=== PATIENT | male | born 1945 | race Caucasian/White ===

== ENCOUNTER 2017-03-05 18:03 | Observation (INO) ==
[2017-03-05] MEDS: 0.9 % SODIUM CHLORIDE 1,000 ML IV SCH ×2 (18:40→22:15)
[2017-03-05 18:56] LABS: Basophils # (Auto) 0.1 K/mcL (0.0-0.3); Basophils % (Auto) 0.6 % (0.0-2.0); Eosinophils # (Auto) 0.2 K/mcL (0.0-0.7); Eosinophils % (Auto) 2.1 % (0.0-7.0); Granulocytes % (Auto) 69.6 % (38.0-78.0); Lymphocytes # (Auto) 2.1 K/mcL (1.5-4.8); Lymphocytes % (Auto) 19.6 % (15.5-49.0); Mean Cell Volume 87.4 fL (80.0-100.0); Mean Corpuscular HGB Conc 32.8 g/dL (31.0-36.0); Mean Corpuscular Hemoglobin 28.7 pg (26.0-34.0); Monocytes # (Auto) 0.9 K/mcL (0.1-0.9); Monocytes % (Auto) 8.1 % (1.0-12.0); Platelet Count 835 K/mcL (140-440); RBC 2.85 M/mcL (4.50-5.90); Red Cell Distribution Width 17.7 % (11.5-14.5)
[2017-03-05 19:19] LABS: Iron 28 mcg/dl (61-157); Transferrin % Saturation 9 % (20-50); Unsaturated Iron Binding 261 mcg/dL (112-346)
--- NOTE | 2017-03-05 19:57 | Emergency Department Note ---
General Adult HPI - General Chief complaint: Recheck/Abnormal Lab/Rx Stated complaint: Anemia Time Seen by Provider: 03/05/17 18:09 Source: patient Mode of arrival: ambulatory - History of Present Illness HPI Narrative: Patient presents, brought in by son. Recently hospitalized at [place] after workup at [facility]. Anemia requiring transfusion, endoscopy upper finding 3 small ulcers. Treated, currently on twice daily protonix. Elevated troponin, told it was due to his anemia, no intervention. Call today from cardiology in [place]. Told that he should come to the ER to get checked out due to anemia. Patient notes residual low-level chest pain. States this is usually with him chronically. Denies any emesis. Notes that he had several days of normal stool and now has melanotic stool. Is taking iron. States that stools were melanotic without the iron. Mildly lightheaded, not short of breath above his baseline. No emesis. Continuing aspirin as instructed. - Related Data Home Medications Medication Instructions Recorded Confirmed Aspirin [Adult Low Dose Aspirin EC] 81 mg PO DAILY 03/05/17 03/05/17 Atorvastatin [Lipitor] 80 mg PO HS 03/05/17 03/05/17 Bisoprolol Fumarate 5 mg PO DAILY 03/05/17 03/05/17 Insulin Glargine, Human [Lantus] 25 unit SQ HS 03/05/17 03/05/17 Iron Polysaccharide Complex 150 mg PO BID 03/05/17 03/05/17 [Ferrex 150] Lisinopril [Zestril] 2.5 mg PO BID 03/05/17 03/05/17 Metoprolol Tartrate [Lopressor] 12.5 mg PO BID 03/05/17 03/05/17 Pantoprazole [Protonix] 40 mg PO BID 03/05/17 03/05/17 Saxagliptin HCl [Onglyza] 5 mg PO DAILY 03/05/17 03/05/17 metFORMIN HCL [Glucophage] 1,000 mg PO BID 03/05/17 03/05/17 Allergies Allergy/AdvReac Type Severity Reaction Status Date / Time codeine Allergy Itching Verified 03/05/17 18:11 hydrocodone Allergy Itching Verified 03/05/17 18:11 Review of Systems All systems ED: reviewed and negative except as stated. Past Medical History - Past Medical History Attestation: Yes: The following information was validated with the patient. Medical history: Reports: coronary artery disease, diabetes, GERD, GI bleed Surgical history ED: Reports: non-contributory Family history: Reports: non-contributory - Social History smoking status: Former smoker Physical Exam - General Limitations: no limitations General appearance: alert, in no apparent distress, obese - Head Head exam: atraumatic - Eye Eye exam: Present: normal appearance - ENT ENT exam: normal exam, mucous membranes moist - Neck Neck exam: Present: normal inspection - Chest Chest inspection: Present: normal inspection - Respiratory Respiratory exam: Present: normal lung sounds bilaterally. Absent: respiratory distress - Cardiovascular Cardiovascular exam: Present: regular rate, normal rhythm. Absent: systolic murmur - Abdominal Exam Abdominal exam: Present: soft. Absent: tenderness - Extremities Exam Extremities exam: Present: normal inspection - Back Exam Back exam: Present: normal inspection - Neurological Exam Neurological exam: Present: alert, oriented X3 - Psychiatric Psychiatric exam: Present: normal affect. Absent: anxious - Skin Skin exam: Present: warm, pallor Course Vital Signs Temperature 98.3 F 03/05/17 18:04 Pulse Rate 83 03/05/17 18:04 Respiratory Rate 16 03/05/17 18:04 Blood Pressure 129/66 03/05/17 18:04 Pulse Oximetry (%) 98 03/05/17 18:04 Temperature 98.3 F 03/05/17 18:04 Pulse Rate 94 H 03/05/17 21:32 Respiratory Rate 19 03/05/17 21:32 Blood Pressure 126/65 03/05/17 21:32 Pulse Oximetry (%) 94 03/05/17 21:32 Medical Decision Making - Medical Records Medical records reviewed: Yes I reviewed the patient's medical records. records from [facility] 02/14 discharge hgb 8.9; severe on echo, advised for TAVR - Lab Data Lab results reviewed: Yes I reviewed the patient's lab results. Result diagrams: 03/05/17 18:31 Lab Results 03/05/17 03/05/17 03/05/17 Range/Units 18:31 18:31 18:31 WBC 10.9 (4.5-11.0) K/mcL RBC 2.85 L (4.50-5.90) M/mcL Hgb 8.2 L (13.5-16.5) g/dL Hct 24.9 L (41.0-55.0) % POC Hct 25.0 L (41.0-55.0) % MCV 87.4 (80.0-100.0) fL MCH 28.7 (26.0-34.0) pg MCHC 32.8 (31.0-36.0) g/dL RDW 17.7 H (11.5-14.5) % Plt Count 835 H (140-440) K/mcL MPV 7.4 (7.4-10.4) fL Gran % 69.6 (38.0-78.0) % Lymph % (Auto) 19.6 (15.5-49.0) % [place] % (Auto) 8.1 (1.0-12.0) % Eos % (Auto) 2.1 (0.0-7.0) % Baso % (Auto) 0.6 (0.0-2.0) % Gran # 7.6 (1.8-8.0) K/mcL Lymph # (Auto) 2.1 (1.5-4.8) K/mcL [place] # (Auto) 0.9 (0.1-0.9) K/mcL Eos # (Auto) 0.2 (0.0-0.7) K/mcL Baso # (Auto) 0.1 (0.0-0.3) K/mcL POC Sodium 140 (133-145) mmol/L POC Potassium 4.2 (3.3-5.1) mmol/L POC Chloride 105 (96-108) mmol/L POC Total CO2 24 (22-30) mmol/L POC BUN 18 (8-23) mg/dl POC Creatinine 1.2 (0.7-1.2) mg/dl POC Glucose 118 H (70-105) mg/dL POC WB Ioniz Calcium 1.16 (1.16-1.32) mmol/L Iron 28 L (61-157) mcg/dl TIBC 289 (228-428) ug/dl Unsat Iron Binding 261 (112-346) mcg/dL Transferrin % Sat 9 L (20-50) % Troponin T 0.02 (0-0.03) ng/ml - EKG Data EKG #1 EKG attestation: Yes I reviewed and interpreted this EKG. EKG results narrative: lateral ST depressions, nondiagnostic Critical Care Time Critical Care Time: Yes Total Critical Care Time: 50 Attestation: ECURRENT gi BLEEDING,SYMPTOMATIC ANEMIA Disposition Clinical Impression: Melena, Severe aortic stenosis Anemia Qualifiers: Anemia type: iron deficiency Iron deficiency anemia type: chronic blood loss Qualified Code(s): D50.0 - Iron deficiency anemia secondary to blood loss ( chronic) Summary: ECEIVING PHYSICIAN dR. Jeter; PENDING CALL TO gi SERVICES, dR. Hein Disposition: Xfer As Inpt ([facility]) Condition: Serious Referrals: Eli Loja ARNP [Primary Care Provider] -
[2017-03-05] MEDS ORDERED: PANTOPRAZOLE 40 MG VIAL IV ONE ×2 (20:59→22:45)
--- NOTE | 2017-03-05 22:22 | Internal Med History&Physical ---
Medical - H&P: HPI Patient information: Note initiated : 03/05/17 at 10:17 pm Patient: Zach Dobson 71 y/o M admitted on for Anemia. History of present illness: Mr. Dobson is a 71 year old M This patient says he started to have issues with lightheadedness and dizziness a few months ago. He presented to [facility] on February 09, and was diagnosed with an upper GI bleed. He was told he had 3 ulcers. He also had known aortic stenosis, and he and his son were trying to figure out the status of that. He got frustrated with the doctors at [facility] so left [facility], and his son drove him up to [facility] in [place]. The patient was transfused 1 unit of packed red blood cells, and started on Protonix. He apparently had some blood work done today, as they were planning on a cardiac cath on March 13. His cardiology office called him today to say that his hemoglobin was very low again and that he should come back to the hospital. Apparently the cardiac cath is planned and they are told he may need to stents, and then in a few months they plan on doing aortic valve replacement and possible bypass surgery as well. At discharge from [facility], he was sent home on baby aspirin, in addition to lisinopril, metoprolol, Lipitor, Protonix, metformin, etc. Prior to his ulcer diagnosis, he had been taking Naprosyn and was also smoking up to 2 packs a day. He has since discontinued those. Over the last several days he has been having some dark stools, but his son and he thought that was because he started taking iron tablets at the end of January. He does have some mild dizziness and dyspnea with exertion, but his son says that has been going on for the last couple of months, and did not seem that different. The patient does have a cough daily, but it is only intermittently productive, and seems worse since he quit smoking. Otherwise, he denies fever or chills, new eye or ear symptoms, sore throat, abdominal pain, nausea or vomiting, diarrhea or constipation. He does have occasional mild chest discomfort and tightness, and dyspnea with exertion, but feels those have been stable. He does have chronic urinary hesitancy. He is normally followed by Eli Loja NP, at the [facility]. He previously was treated with both pro-air and Spiriva inhalers, as well as Flomax, but apparently they had him discontinue these medications when he was at [facility]. He is currently followed by a director software quality assurance named Dr. Espinal. Past medical history: Recent upper GI bleed, admitted to [facility], EGD revealed 3 peptic ulcers. January 2017. History of coronary artery disease Critical aortic valve stenosis, with AVR planned Hypertension COPD long-standing tobacco abuse, having just quit recently Type 2 diabetes GERD Medications: Oxygen 2.5 L at at bedtime Bisoprolol 5 milligrams daily (he has been taking this, but did not realize [facility] had replaced it with metoprolol) Metoprolol 12.5 mg p.o. twice daily Lisinopril 2.5 mg p.o. twice daily Ferrex 150 150 mg p.o. twice daily Protonix 40 mg p.o. twice daily Saxagliptin 5 mg daily Metformin 1000 mg twice daily Lantus 25 units nightly Lipitor 80 mg nightly Aspirin 81 mg daily Prior to admission to [facility], he was taking Norvasc, aspirin, chlorthalidone, losartan, multivitamin, Naprosyn, pro-air, Spiriva, Flomax, vitamin C. Allergies: Codeine Hydrocodone next Family history: The patient reports his father with stomach cancer. His mother after a motor vehicle accident. His sister had multiple myeloma. His father may also have had diabetes. He is unaware of any family history of heart disease or stroke. Social history: The patient has been living alone, but his son has been staying with him lately. He plans to move to either [place] or [facility] soon, so that he can live near 1 of his sons. He has smoked 1-2 packs of cigarettes per day since the age of 12, and just quit your earlier this year. He has not drunk alcohol for many years. He was smoking marijuana most evenings to help him sleep, but quit that recently as well. Medical - H&P: Meds Home Medications Medication Instructions Recorded Confirmed Type Aspirin [Adult Low Dose Aspirin EC] 81 mg PO DAILY 03/05/17 03/05/17 History Atorvastatin [Lipitor] 80 mg PO HS 03/05/17 03/05/17 History Bisoprolol Fumarate 5 mg PO DAILY 03/05/17 03/05/17 History Insulin Glargine, Human [Lantus] 25 unit SQ HS 03/05/17 03/05/17 History Iron Polysaccharide Complex 150 mg PO BID 03/05/17 03/05/17 History [Ferrex 150] Lisinopril [Zestril] 2.5 mg PO BID 03/05/17 03/05/17 History Metoprolol Tartrate [Lopressor] 12.5 mg PO BID 03/05/17 03/05/17 History Pantoprazole [Protonix] 40 mg PO BID 03/05/17 03/05/17 History Saxagliptin HCl [Onglyza] 5 mg PO DAILY 03/05/17 03/05/17 History metFORMIN HCL [Glucophage] 1,000 mg PO BID 03/05/17 03/05/17 History Allergies Allergy/AdvReac Type Severity Reaction Status Date / Time codeine Allergy Itching Verified 03/05/17 18:11 hydrocodone Allergy Itching Verified 03/05/17 18:11 Medical - H&P: Exam - Constitutional Vitals: Temp Pulse Resp BP Pulse Ox 98.3 F 77 20 116/55 97 03/05/17 18:04 03/05/17 22:12 03/05/17 22:12 03/05/17 22:02 03/05/17 22:12 Initial blood pressure 129/66, dropping to 92/58, and now up to 127/108. Heart rate initially 83 and then bumped to 94, O2 saturation 94% on room air The patient is an elderly white male, who is rather pale, lying in bed. He is in no acute distress. Head is normocephalic atraumatic. Eyes: PERRLA, EOMI, anicteric. Ears: TMs and canals are clear. Pharynx: Pharynx is clear. He has full upper and lower plates. Neck: Is supple, without lymphadenopathy or thyromegaly. Neck veins are a little bit full. He has bilateral bruits, that seemed to radiate from his heart murmur. Cardiac exam: Shows regular rate and rhythm, with normal S1 and S2. There is a fairly loud, coarse systolic murmur throughout the precordium, loudest at the left lower sternal border. Lungs: Are clear to auscultation, with slightly decreased breath sounds. Rare wheezes are noted. No rales or rhonchi are noted. Abdomen: Is soft and nontender, with no obvious masses. Bowel sounds are active. There is no guarding or rebound. Rectal exam: No stools were noted in the ER. However the son brought a picture of the patient's stool, which was quite black. Extremities: Show no cyanosis, clubbing, edema. Pulses are intact. Neurologic exam: Is grossly nonfocal. Medical - H&P: Reslt - Labs CBC & Chem 7: 03/05/17 18:31 Labs: Short CBC 03/05/17 Range/Units 18:31 WBC 10.9 (4.5-11.0) K/mcL Hgb 8.2 L (13.5-16.5) g/dL Hct 24.9 L (41.0-55.0) % Plt Count 835 H (140-440) K/mcL Cardiac Enzymes 03/05/17 Range/Units 18:31 Troponin T 0.02 (0-0.03) ng/ml INR is 1.2 Chemistry panel: Sodium 140, potassium 4.2, BUN 18, creatinine 1.2, glucose 118 Iron is low at 28 TIBC is normal. Transferrin saturation is low at 9% EKG: Shows normal sinus rhythm with a rate of about 90, normal axis, slow R- wave progression, no acute ST-T changes. Medical - H&P: A/P (1) Hx of coronary artery disease Current visit: Yes Status: Chronic (2) PUD (peptic ulcer disease) Current visit: Yes Status: Acute (3) History of tobacco use Current visit: Yes Status: Chronic (4) DM type 2 (diabetes mellitus, type 2) Current visit: Yes Status: Chronic (5) Melena Current visit: Yes Status: Acute (6) Anemia Current visit: Yes Status: Acute (7) Severe aortic stenosis Current visit: Yes Status: Chronic (8) COPD (chronic obstructive pulmonary disease) Current visit: Yes Status: Acute - Narrative A/P Narrative: #1. GI. Patient presents with apparent melena, and significant anemia. This is suspicious for recurrent GI bleed, given his recent history of upper GI bleed due to peptic ulcers. His son reports that his most recent hemoglobin, prior to today, was 10. -Admit to telemetry for close monitoring. -Serial hemoglobin and hematocrit -IV Protonix ip -GI consult -Type and cross for 2 units of packed red cells -N.p.o. #2. Cardiac. -History of coronary artery disease. We will hold oral meds for now, but use as needed Lopressor for elevated blood pressure or heart rate. -When taking p.o., resume lisinopril, , metoprolol, atorvastatin. Bisoprolol can be stopped, as it appears his [facility] doctors laced that with metoprolol. -Aspirin is on hold. 3. Endocrine. -History of type 2 diabetes. -Metformin and saxagliptin are on hold. -Accu-Cheks and sliding scale insulin coverage. Add back Lantus once taking p.o. 4. CODE STATUS: Full code. His son, Rashel, has his POA. 5. DVT prophylaxis: SCDs. 6. Hematologic. This patient presents with anemia. His recent baseline is unclear. -Type and cross. -Platelets are quite elevated. This may be just an acute reaction. Continue to monitor. #7. Pulmonary. Patient reports history of COPD, and long-standing tobacco abuse. Continue his usual at bedtime oxygen. Albuterol nebs as needed. 8. Insomnia. Patient reports he often has difficulty sleeping. He requested medication, and will be prescribed as needed Ativan. This visit took approximately 60 minutes, to review the patient's case with the ER MD, review his test results, interview and examine him, review plan of care with the patient and his son, and write orders.
[2017-03-05] MEDS ORDERED: NITROGLYCERIN 0.4 MG TAB.SUBL SL PRN (22:37)
[2017-03-05] MEDS ORDERED: ONDANSETRON 4 MG/2 ML VIAL IV PRN (22:37)
[2017-03-05] MEDS ORDERED: POTASSIUM CHLORIDE 20 MEQ in 0.9 % SODIUM CHLORIDE 1,000 ML IV SCH (22:37)
[2017-03-05] MEDS ORDERED: METOPROLOL TARTRATE 5 MG/5 ML VIAL IV PRN (22:37)
[2017-03-05] MEDS ORDERED: DEXTROSE 50% 50 ML VIAL IV PRN (22:37)
[2017-03-05] MEDS ORDERED: DOCUSATE SODIUM 100 MG CAPSULE PO PRN (22:37)
[2017-03-05] MEDS ORDERED: ACETAMINOPHEN 325 MG TABLET PO PRN (22:37)
[2017-03-05] MEDS ORDERED: NALOXONE HCL 0.4 MG/ML VIAL IV PRN (22:37)
[2017-03-05] MEDS ORDERED: 0.9 % SODIUM CHLORIDE 1,000 ML IV SCH (22:37)
[2017-03-05] MEDS ORDERED: 0.9 % SODIUM CHLORIDE 250 ML IV SCH (22:45)
[2017-03-05] MEDS: PANTOPRAZOLE 80 MG in 0.9 % SODIUM CHLORIDE 100 ML IV SCH (22:52)
[2017-03-05] MEDS ORDERED: LORazepam 2 MG/ML VIAL ONE (23:56)
[2017-03-06] MEDS: INSULIN LISPRO 1 UNIT/0.01 ML UNIT SQ SCH ×4 (00:19→19:10)
[2017-03-06] MEDS ORDERED: 0.9 % SODIUM CHLORIDE 250 ML IV SCH (02:00)
[2017-03-06 07:38] LABS: Basophils # (Auto) 0.1 K/mcL (0.0-0.3); Basophils % (Auto) 0.9 % (0.0-2.0); Eosinophils # (Auto) 0.2 K/mcL (0.0-0.7); Eosinophils % (Auto) 2.5 % (0.0-7.0); Granulocytes % (Auto) 70.2 % (38.0-78.0); Lymphocytes # (Auto) 1.4 K/mcL (1.5-4.8); Lymphocytes % (Auto) 18.2 % (15.5-49.0); Mean Cell Volume 88.2 fL (80.0-100.0); Mean Corpuscular HGB Conc 32.8 g/dL (31.0-36.0); Mean Corpuscular Hemoglobin 28.9 pg (26.0-34.0); Monocytes # (Auto) 0.6 K/mcL (0.1-0.9); Monocytes % (Auto) 8.2 % (1.0-12.0); Platelet Count 712 K/mcL (140-440); RBC 2.83 M/mcL (4.50-5.90); Red Cell Distribution Width 17.2 % (11.5-14.5)
[2017-03-06 08:01] LABS: ALT/SGPT 60 U/l (0-40); Albumin/Globulin Ratio 0.9 (1.0-2.3); Alkaline Phosphatase 70 U/L (39-117); Bilirubin,Direct < 0.2 mg/dL (0.0-0.3); Blood Urea Nitrogen 13 mg/dl (8-23); Gamma Glutamyl Transpeptidase 19 U/L (8-61); Magnesium 1.7 mg/dL (1.6-2.5); Uric Acid 7.3 mg/dL (2.5-8.0)
[2017-03-06] MEDS: PANTOPRAZOLE 80 MG in 0.9 % SODIUM CHLORIDE 100 ML IV SCH ×2 (08:15→20:15)
[2017-03-06] MEDS: NACL 0.9% W/KCL 20MEQ 1,000 ML IV SCH ×3 (08:15→20:47)
[2017-03-06] MEDS ORDERED: NICOTINE 7 MG PATCH TOPICAL SCH (10:00)
[2017-03-06] MEDS: LORazepam 2 MG/ML VIAL IV PRN ×4 (10:20→21:27)
[2017-03-06] MEDS ORDERED: PROPOFOL 200 MG/20 ML VIAL IV SCH (15:45)
[2017-03-06] MEDS ORDERED: MIDAZOLAM 2 MG/2 ML VIAL IV SCH (15:45)
[2017-03-06] MEDS ORDERED: PROPOFOL 20 ML IV ONE (16:40)
[2017-03-06] MEDS ORDERED: MIDAZOLAM 2 MG/2 ML VIAL ONE (16:40)
[2017-03-06] MEDS ORDERED: EPINEPHrine 1 MG/ML (1:1000) VIAL IJ ONE (17:48)
--- NOTE | 2017-03-06 20:49 | Internal Med Progress Note ---
Medical - PN: Subj Patient information: Note initiated : 03/06/17 at 8:46 pmService Date, if different from initiated Date: [] Patient: Zach Dobson 71 y/o M admitted on 03/05/17 for Anemia/GI Bleed. Interval history: March 05, 2017: History of present illness: Mr. Dobson is a 71 year old man. This patient says he started to have issues with lightheadedness and dizziness a few months ago. He presented to [facility] on February 09, and was diagnosed with an upper GI bleed. He was told he had 3 ulcers. He also had known aortic stenosis, and he and his son were trying to figure out the status of that. He got frustrated with the doctors at [facility] so left [facility], and his son drove him up to [facility] in [place]. The patient was transfused 1 unit of packed red blood cells, and started on Protonix. He apparently had some blood work done today, as they were planning on a cardiac cath on March 13. His cardiology office called him today to say that his hemoglobin was very low again and that he should come back to the hospital. Apparently the cardiac cath is planned and they are told he may need to stents, and then in a few months they plan on doing aortic valve replacement and possible bypass surgery as well. At discharge from [facility], he was sent home on baby aspirin, in addition to lisinopril, metoprolol, Lipitor, Protonix, metformin, etc. Prior to his ulcer diagnosis, he had been taking Naprosyn and was also smoking up to 2 packs a day. He has since discontinued those. Over the last several days he has been having some dark stools, but his son and he thought that was because he started taking iron tablets at the end of January. He does have some mild dizziness and dyspnea with exertion, but his son says that has been going on for the last couple of months, and did not seem that different. The patient does have a cough daily, but it is only intermittently productive, and seems worse since he quit smoking. Otherwise, he denies fever or chills, new eye or ear symptoms, sore throat, abdominal pain, nausea or vomiting, diarrhea or constipation. He does have occasional mild chest discomfort and tightness, and dyspnea with exertion, but feels those have been stable. He does have chronic urinary hesitancy. He is normally followed by Eli Loja NP, at the [facility]. He previously was treated with both pro-air and Spiriva inhalers, as well as Flomax, but apparently they had him discontinue these medications when he was at [facility]. He is currently followed by a bus van driver named Dr. Espinal. March 06: -The patient underwent upper endoscopy today with Dr. Gallegos. His recent ulcers appear to have healed. A bleeding angiodysplasia lesion was found. This was clipped. Dr. Gallegos feels he will not likely have more bleeding. We will monitor hemoglobin overnight, and start him on a soft diet this evening. -The patient says he feels a bit fatigued today, but denies any shortness of breath or dizziness today. He otherwise denies fever or chills, sore throat. His cough is unchanged. He denies chest pain or palpitations, or significant dyspnea. He denies abdominal pain, nausea or vomiting, dysuria. - Constitutional Vitals: Vital Signs Temp Pulse Resp BP Pulse Ox 97.4 F 72 16 139/73 97 03/06/17 20:00 03/06/17 19:00 03/06/17 20:00 03/06/17 20:00 03/06/17 20:00 Period Temp Pulse Resp BP Sys/Thomson Pulse Ox Last 24 Hr 96.8 F-98.4 F 58-92 16-22 111-166/54-114 94-100 Intake and Output 03/06/17 03/06/17 03/06/17 05:59 13:59 21:59 Intake Total 310 / 310 500 / 500 Output Total 1000 / 1000 1250 / 1250 Balance -690 / -690 -750 / -750 Weight 229 lb Patient Weight 03/07/17 05:59 Weight 229 lb Intake & Output: Intake & Output 03/06/17 03/06/17 03/06/17 05:59 13:59 21:59 Intake Total 310 / 310 500 / 500 Output Total 1000 / 1000 1250 / 1250 Balance -690 / -690 -750 / -750 Weight 229 lb Intake: IV 100 / 100 Protonix 80 mg In Sodium 100 / 100 Chloride 0.9% 100 ml @ 8 MG/HR 10 mls/hr IV Q10H [facility] Rx#:[id number] Oral 400 / 400 Blood Product 310 / 310 Output: Void Amount 1000 / 1000 1250 / 1250 Other: # Voids 1 # Bowel Movements 0 On exam, he is much less pale this morning. He is in no acute distress. Neck is supple without obvious lymphadenopathy. Cardiac exam shows regular rate and rhythm. Lungs are clear to auscultation. Abdomen is soft and nontender. Extremities show no edema. Medical - PN: Obj Da - Labs CBC & Chem 7: 03/06/17 13:06 03/06/17 06:40 Labs: Abnormal Lab Results 03/06/17 03/06/17 03/06/17 13:06 06:40 06:40 RBC 2.83 L Hgb 9.5 L 8.2 L Hct 28.4 L 25.0 L RDW 17.2 H Plt Count 712 H MPV 7.1 L Lymph # (Auto) 1.4 L Glucose 113 H AST 38 H ALT 60 H Albumin 3.0 L Albumin/Globulin Ratio 0.9 L 03/05/17 22:40 RBC Hgb 7.4 L Hct 22.3 L RDW Plt Count MPV Lymph # (Auto) Glucose AST ALT Albumin Albumin/Globulin Ratio March 06: Electrolytes are normal. March 05: INR is 1.2 Chemistry panel: Sodium 140, potassium 4.2, BUN 18, creatinine 1.2, glucose 118 Iron is low at 28 TIBC is normal. Transferrin saturation is low at 9% EKG: Shows normal sinus rhythm with a rate of about 90, normal axis, slow R- wave progression, no acute ST-T changes. Meds: Medications Acetaminophen (Tylenol) 650 mg PO Q6HP PRN PRN Reason: PAIN/FEVER > 101 Dextrose (Dextrose 50%) 0 ml IV UD PRN PRN Reason: Hypoglycemia Diagnostic Test (Pha) (Accu-Chek) 1 each FS Q6 [facility] Last Admin: 03/06/17 19:09 Dose: 1 each Diagnostic Test (Pha) (Accu-Chek) 1 each FS ONCE [facility] Stop: 03/06/17 23:36 Last Admin: 03/06/17 19:39 Dose: Not Given Docusate Sodium (Colace) 100 mg PO BID PRN PRN Reason: Constipation Pantoprazole Sodium 80 mg/ (Sodium Chloride) 100 mls @ 10 mls/hr IV Q10H [facility] PRN Reason: 8 MG/HR Last Admin: 03/06/17 20:15 Dose: 8 mg/hr, 10 mls/hr Potassium Chloride/Sodium Chloride (Nacl 0.9% W/Kcl 20meq 1000ml) 1,000 mls @ 100 mls/hr IV .Q10H [facility] Last Admin: 03/06/17 19:41 Dose: Not Given Insulin Human Lispro (Humalog) 0 unit SQ Q6 [facility] PRN Reason: Protocol Last Admin: 03/06/17 19:10 Dose: Not Given Lorazepam (Ativan) 0.5 mg IV Q2-4HP PRN PRN Reason: ANXIETY/SEDATION Last Admin: 03/06/17 19:07 Dose: 0.5 mg Metoprolol Tartrate (Lopressor) 5 mg IV Q4HP PRN PRN Reason: Tachyarrhythmias Midazolam HCl (Versed) 0 mg IV ONCE [facility] Stop: 03/06/17 23:36 Last Admin: 03/06/17 17:10 Dose: 2 mg Morphine Sulfate (Morphine) 2 mg IV Q5MIN PRN PRN Reason: Chest Pain Naloxone HCl (Narcan) 0.1 mg IV Q2MIN PRN PRN Reason: Opiate Reversal Nicotine (Nicoderm) 7 mg TOPICAL DAILY@1000 [facility] Last Admin: 03/06/17 20:16 Dose: Not Given Nitroglycerin (Nitrostat) 0.4 mg SL Q5M PRN PRN Reason: Chest Pain Ondansetron HCl (Zofran) 4 mg IV Q4HP PRN PRN Reason: Nausea And Vomiting Propofol (Diprivan) 0 mg IV ONCE [facility] Stop: 03/06/17 23:36 Last Admin: 03/06/17 17:10 Dose: 200 mg Medical - PN: A/P - Time Spent With Patient Total time spent is greater than 50% in coordination of care (as documented) at patient's floor/unit and/or counseling patient: 25 - 35 minutes (1) Hx of coronary artery disease Status: Chronic Current Visit: Yes (2) PUD (peptic ulcer disease) Status: Acute Current Visit: Yes (3) History of tobacco use Status: Chronic Current Visit: Yes (4) DM type 2 (diabetes mellitus, type 2) Status: Chronic Current Visit: Yes (5) Melena Status: Acute Current Visit: Yes (6) Anemia Status: Acute Current Visit: Yes (7) Severe aortic stenosis Status: Chronic Current Visit: Yes (8) COPD (chronic obstructive pulmonary disease) Status: Acute Current Visit: Yes - Narrative A/P Narrative: #1. GI. Patient presents with apparent melena, and significant anemia. Endoscopy today showed a bleeding angiodysplastic lesion. This was clipped. Dr. Gallegos feels that the patient should not have any more bleeding. -We will continue to monitor hemoglobin and hematocrit overnight. He can start on a liquid diet this evening. If all is stable tomorrow morning, he can be discharged. -IV Protonix drip #2. Cardiac. -History of coronary artery disease. -Resume usual medications, but hold aspirin for today. We will hold oral meds for now, but use as needed Lopressor for elevated blood pressure or heart rate. - resume lisinopril, , metoprolol, atorvastatin. Bisoprolol can be stopped, as it appears his [facility] doctors laced that with metoprolol. -Aspirin is on hold. 3. Endocrine. -History of type 2 diabetes. -Metformin and saxagliptin are on hold. -Accu-Cheks and sliding scale insulin coverage. Add back Lantus once taking p.o. 4. CODE STATUS: Full code. His son, Rashel, has his POA. 5. DVT prophylaxis: SCDs. 6. Hematologic. This patient presents with anemia. His recent baseline is unclear. -Type and cross. -Platelets are still quite elevated. This may be just an acute reaction. Recheck in the morning. #7. Pulmonary. Patient reports history of COPD, and long-standing tobacco abuse. Continue his usual at bedtime oxygen. Albuterol nebs as needed. 8. Insomnia. Patient reports he often has difficulty sleeping. He requested medication, and was prescribed as needed Ativan. Approximately 25 minutes was spent today, reviewing patient's test results, interviewing and examining him, reviewing plan of care with the patient and his son, and later reviewing the case and endoscopy findings with Dr. Gallegos of GI. Medical - PN: Qual - VTE Deep Vein Thrombosis/Pulmonary Embolism Present on Admission: No
[2017-03-07] MEDS: INSULIN LISPRO 1 UNIT/0.01 ML UNIT SQ SCH ×2 (01:07→05:24)
[2017-03-07] MEDS: NACL 0.9% W/KCL 20MEQ 1,000 ML IV SCH ×2 (03:07→06:41)
[2017-03-07] MEDS: LORazepam 2 MG/ML VIAL IV PRN (05:20)
[2017-03-07 06:31] LABS: Basophils # (Auto) 0 K/mcL (0.0-0.3); Basophils % (Auto) 0.5 % (0.0-2.0); Eosinophils # (Auto) 0.2 K/mcL (0.0-0.7); Eosinophils % (Auto) 2.5 % (0.0-7.0); Granulocytes % (Auto) 73.7 % (38.0-78.0); Lymphocytes # (Auto) 1.1 K/mcL (1.5-4.8); Lymphocytes % (Auto) 14.8 % (15.5-49.0); Mean Cell Volume 88.4 fL (80.0-100.0); Mean Corpuscular HGB Conc 32.7 g/dL (31.0-36.0); Mean Corpuscular Hemoglobin 28.9 pg (26.0-34.0); Monocytes # (Auto) 0.6 K/mcL (0.1-0.9); Monocytes % (Auto) 8.5 % (1.0-12.0); Platelet Count 694 K/mcL (140-440); RBC 3.23 M/mcL (4.50-5.90); Red Cell Distribution Width 16.7 % (11.5-14.5)
[2017-03-07 06:56] LABS: ALT/SGPT 56 U/l (0-40); Albumin 2.9 gm/dL (3.2-5.2); Albumin/Globulin Ratio 0.9 (1.0-2.3); Alkaline Phosphatase 75 U/L (39-117); Bilirubin,Direct < 0.2 mg/dL (0.0-0.3); Blood Urea Nitrogen 10 mg/dl (8-23); Gamma Glutamyl Transpeptidase 19 U/L (8-61); Magnesium 1.8 mg/dL (1.6-2.5); Uric Acid 6.3 mg/dL (2.5-8.0)
[2017-03-07] MEDS ORDERED: metFORMIN 500 MG TABLET PO SCH (08:00)
[2017-03-07] MEDS ORDERED: LISINOPRIL 5 MG TABLET PO SCH (09:00)
[2017-03-07] MEDS ORDERED: METOPROLOL TARTRATE 25 MG TABLET PO SCH (09:00)
[2017-03-07] MEDS ORDERED: IRON POLYSACCHARIDE COMPLEX 150 MG CAPSULE PO SCH (09:00)
--- NOTE | 2017-03-07 11:24 | Discharge Summary ---
Medical - DS: Prov Patient information: Note initiated : 03/07/17 at 11:24 am Service Date, if different from initiated Date: [] Patient: Zach Dobson 71 y/o M admitted on 03/05/17 for Anemia/GI Bleed. Chief Complaint: [] Date of admission: 03/05/17 22:20 Discharge date: 03/07/17 Primary care physician: Eli Loja at the [facility], Dr. ESPINAL, pearl hand at [facility] Admitting clinician: Alondra Kline Attending physician on discharge: Alondra Kline Medical - DS: Meds - Discharge Medications Active and Home Medications: Discharge medications: Please stop taking the bisoprolol Lisinopril 2.5 mg p.o. twice daily Ferrex 151 p.o. twice daily Protonix 40 mg p.o. twice daily Saxagliptin 5 mg daily Metoprolol tartrate 12.5 mg p.o. twice daily Metformin 1000 mg p.o. twice daily Lantus 25 units subcu nightly Lipitor 80 mg p.o. nightly next line aspirin 81 mg daily Tylenol 650 mg every 6 hours as needed Previous home Medications Aspirin [Adult Low Dose Aspirin EC] 81 mg PO DAILY 03/05/17 [History Confirmed 03/05/17 Last Taken Unknown] Atorvastatin [Lipitor] 80 mg PO HS 03/05/17 [History Confirmed 03/05/17 Last Taken Unknown] ?? Bisoprolol Fumarate 5 mg PO DAILY 03/05/17 [History Confirmed 03/05/17 Last Taken Unknown] Insulin Glargine, Human [Lantus] 25 unit SQ HS 03/05/17 [History Confirmed 03/05 Last Taken Unknown] Iron Polysaccharide Complex [Ferrex 150] 150 mg PO BID 03/05/17 [History Confirmed 03/05/17 Last Taken Unknown] Lisinopril [Zestril] 2.5 mg PO BID 03/05/17 [History Confirmed 03/05/17 Last Taken Unknown] Metoprolol Tartrate [Lopressor] 12.5 mg PO BID 03/05/17 [History Confirmed 03/05 Last Taken Unknown] Pantoprazole [Protonix] 40 mg PO BID 03/05/17 [History Confirmed 03/05/17 Last Taken Unknown] Saxagliptin HCl [Onglyza] 5 mg PO DAILY 03/05/17 [History Confirmed 03/05/17 Last Taken Unknown] metFORMIN HCL [Glucophage] 1,000 mg PO BID 03/05/17 [History Confirmed 03/05/17 Last Taken Unknown] Medical - DS: [facility] Hospital course: Mr. Dobson is a 71 year old M March 05, 2017: History of present illness: Mr. Dobson is a 71 year old man. This patient says he started to have issues with lightheadedness and dizziness a few months ago. He presented to [facility] on February 09, and was diagnosed with an upper GI bleed. He was told he had 3 ulcers. He also had known aortic stenosis, and he and his son were trying to figure out the status of that. He got frustrated with the doctors at [facility] so left [facility], and his son drove him up to [facility] in [place]. The patient was transfused 1 unit of packed red blood cells, and started on Protonix. He apparently had some blood work done today, as they were planning on a cardiac cath on March 13. His cardiology office called him today to say that his hemoglobin was very low again and that he should come back to the hospital. Apparently the cardiac cath is planned and they are told he may need to stents, and then in a few months they plan on doing aortic valve replacement and possible bypass surgery as well. At discharge from [facility], he was sent home on baby aspirin, in addition to lisinopril, metoprolol, Lipitor, Protonix, metformin, etc. Prior to his ulcer diagnosis, he had been taking Naprosyn and was also smoking up to 2 packs a day. He has since discontinued those. Over the last several days he has been having some dark stools, but his son and he thought that was because he started taking iron tablets at the end of January. He does have some mild dizziness and dyspnea with exertion, but his son says that has been going on for the last couple of months, and did not seem that different. The patient does have a cough daily, but it is only intermittently productive, and seems worse since he quit smoking. Otherwise, he denies fever or chills, new eye or ear symptoms, sore throat, abdominal pain, nausea or vomiting, diarrhea or constipation. He does have occasional mild chest discomfort and tightness, and dyspnea with exertion, but feels those have been stable. He does have chronic urinary hesitancy. He is normally followed by Eli Loja NP, at the [facility]. He previously was treated with both pro-air and Spiriva inhalers, as well as Flomax, but apparently they had him discontinue these medications when he was at [facility]. He is currently followed by a pearl hand named Dr. Espinal. March 06: -The patient underwent upper endoscopy today with Dr. Gallegos. His recent ulcers appear to have healed. A bleeding angiodysplasia lesion was found. This was clipped. Dr. Gallegos feels he will not likely have more bleeding. We will monitor hemoglobin overnight, and start him on a soft diet this evening. -The patient says he feels a bit fatigued today, but denies any shortness of breath or dizziness today. He otherwise denies fever or chills, sore throat. His cough is unchanged. He denies chest pain or palpitations, or significant dyspnea. He denies abdominal pain, nausea or vomiting, dysuria. March 07: The patient is feeling fine today. He tolerated a regular breakfast. He is anxious to leave. Hemoglobin and hematocrit are stable today. He denies fever or chills, chest pain or palpitations, shortness of breath, GI or symptoms. On exam, he is much less pale . He is in no acute distress. Neck is supple without obvious lymphadenopathy. Cardiac exam shows regular rate and rhythm. 2/6 systolic ejection murmur is noted. Lungs are clear to auscultation. Abdomen is soft and nontender. Extremities show no edema. Neurologic exam is grossly nonfocal Assessment and plan: #1. GI. Patient presents with apparent melena, and significant anemia. Endoscopy showed a bleeding angiodysplastic lesion. This was clipped. Dr. Gallegos feels that the patient should not have any more bleeding. He presented on March 05 with hemoglobin of 8, which dropped to 7. He is status post 2 units of packed red blood cells, and hemoglobin went up to 9.5 last night , and is at 8.6 this morning, with hematocrit 26. He is feeling fine. -He is stable for discharge. He should have follow-up with his regular doctor, or his pearl hand, in the next few days, to recheck hemoglobin and hematocrit. He should certainly return if he has any further signs or symptoms of bleeding. -Resume oral Protonix. He should be safe to resume all of his usual cardiac medications as well appear #2. Cardiac. -History of coronary artery disease. -Resume usual medications. - resume lisinopril, , metoprolol, atorvastatin. Bisoprolol can be stopped, as it appears his [facility] doctors replaced that with metoprolol. 3. Endocrine. -History of type 2 diabetes. -Controlled. Resume usual medications. The patient does not seem entirely on board with following a diabetic diet. 4. CODE STATUS: Full code. His son, Rashel, has his POA. 5. DVT prophylaxis: SCDs. 6. Hematologic. This patient presents with anemia. His recent baseline is unclear. -Type and cross. -Platelets are still quite elevated. This may need to be followed up with a hydramatic specialist, as these do not seem to be coming back to normal. He may have an underlying bone marrow disorder. #7. Pulmonary. Patient reports history of COPD, and long-standing tobacco abuse. Continue his usual at bedtime oxygen. Albuterol nebs as needed. 8. Insomnia. Patient reports he often has difficulty sleeping. He requested medication, and was prescribed as needed Ativan. 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 Coronary artery disease. Secondary discharge diagnosis: Aortic stenosis, critical. Type 2 diabetes. Coronary artery disease. - Time Spent with Patient Total time spent providing and/or coordinating discharge services: Greater than 30 minutes Medical - DS: Exam - Constitutional Vitals: Vital Signs Temp Pulse Pulse Resp BP BP Pulse Ox 03/07/17 08:50 98.6 F 16 143/91 97 03/07/17 08:00 97 03/07/17 04:00 98.1 F 18 143/70 98 03/07/17 00:00 18 165/51 90 03/06/17 20:00 97.4 F 16 139/73 97 03/06/17 19:00 96.8 F L 72 18 129/95 99 03/06/17 18:00 58 L 16 166/54 100 03/06/17 17:47 92 H 16 137/63 98 03/06/17 17:45 62 16 149/64 99 03/06/17 16:51 77 16 153/56 97 03/06/17 16:00 97.4 F 85 22 151/81 94 03/06/17 13:05 97.6 F 18 133/114 96 Intake and Output 03/06/17 03/07/17 03/07/17 21:59 05:59 13:59 Intake Total 1680 / 1680 240 / 240 1230 / 1230 Output Total 1600 / 1600 1350 / 1350 150 / 150 Balance 80 / 80 -1110 / -1110 1080 / 1080 Intake: IV 1100 / 1100 990 / 990 NaCl 0.9% W/KCl 20Meq 1000 / 1000 990 / 990 1000ML 1,000 ml @ 100 mls /hr IV .Q10H [facility] Rx#: [id number] Protonix 80 mg In Sodium 100 / 100 Chloride 0.9% 100 ml @ 8 MG/HR 10 mls/hr IV Q10H [facility] Rx#:[id number] Oral 580 / 580 240 / 240 240 / 240 Output: Void Amount 1600 / 1600 1350 / 1350 150 / 150 Other: Meal Breakfast Percent of Meal Consumed 100% Feeding Ability Independent # Voids 1 1 # Bowel Movements 1 Weight 229 lb Medical - DS: Data Labs on day of discharge: Labs from last 24 hours 03/07/17 03/07/17 03/06/17 03:29 03:29 21:32 WBC 7.3 RBC 3.23 L Hgb 9.3 L 8.6 L Hct 28.6 L 26.4 L MCV 88.4 MCH 28.9 MCHC 32.7 RDW 16.7 H Plt Count 694 H MPV 7.5 Gran % 73.7 Lymph % (Auto) 14.8 L [place] % (Auto) 8.5 Eos % (Auto) 2.5 Baso % (Auto) 0.5 Gran # 5.4 Lymph # (Auto) 1.1 L [place] # (Auto) 0.6 Eos # (Auto) 0.2 Baso # (Auto) 0 Sodium 144 Potassium 4.2 Chloride 107 Carbon Dioxide 24 Anion Gap 13.0 BUN 10 Creatinine 0.8 GFR Calculation 91 Glucose 111 H Uric Acid 6.3 Calcium 8.7 Phosphorus 3.4 Magnesium 1.8 Total Bilirubin 0.4 Direct Bilirubin < 0.2 GGT 19 AST 36 ALT 56 H Alkaline Phosphatase 75 Lactate Dehydrogenase 164 Total Protein 6.2 Albumin 2.9 L Globulin 3.3 Albumin/Globulin Ratio 0.9 L Triglycerides 63 03/06/17 13:06 WBC RBC Hgb 9.5 L Hct 28.4 L MCV MCH MCHC RDW Plt Count MPV Gran % Lymph % (Auto) [place] % (Auto) Eos % (Auto) Baso % (Auto) Gran # Lymph # (Auto) [place] # (Auto) Eos # (Auto) Baso # (Auto) Sodium Potassium Chloride Carbon Dioxide Anion Gap BUN Creatinine GFR Calculation Glucose Uric Acid Calcium Phosphorus Magnesium Total Bilirubin Direct Bilirubin GGT AST ALT Alkaline Phosphatase Lactate Dehydrogenase Total Protein Albumin Globulin Albumin/Globulin Ratio Triglycerides March 06: Electrolytes are normal. March 05: INR is 1.2 Chemistry panel: Sodium 140, potassium 4.2, BUN 18, creatinine 1.2, glucose 118 Iron is low at 28 TIBC is normal. Transferrin saturation is low at 9% EKG: Shows normal sinus rhythm with a rate of about 90, normal axis, slow R- wave progression, no acute ST-T changes. Medical - DS: A/P - Patient/Caregiver Discharge Instructions Activity: increase activity as tolerated Diet: Low Sodium (2gm), Consistent Carbohydrate Additional Instructions: 1. Dr. Gallegos of gastroenterology found a bleeding angiodysplasia lesion in your stomach. This was clamped. It should not bleed any longer. -Please see your regular doctor in the next few days, and have them recheck a red blood cell count. Please return to the emergency room if you have further signs or symptoms of bleeding. -Dr. Gallegos recommended rechecking your stool for blood in about 2 weeks. 2. you may resume all of your usual cardiac medications. 3. Please monitor your blood sugars at least twice a day, and report to your primary care physician if these are not well controlled. You should run between 80 and 100 prior to meals, and between 130 and 150 after meals and at bedtime. #4. Also, your platelet count ran rather high while here in the hospital. Please have your primary care physician recheck this. - Problem Maintenance (1) Hx of coronary artery disease Status: Chronic (2) PUD (peptic ulcer disease) Status: Chronic (3) History of tobacco use Status: Chronic (4) DM type 2 (diabetes mellitus, type 2) Status: Chronic (5) Melena Status: Resolved (6) Anemia Status: Acute Qualifiers: Anemia type: iron deficiency Iron deficiency anemia type: chronic blood loss Qualified Code(s): D50.0 - Iron deficiency anemia secondary to blood loss (chronic) (7) Severe aortic stenosis Status: Chronic (8) COPD (chronic obstructive pulmonary disease) Status: Chronic (9) Thrombocytosis Status: Acute - Follow up Plan Follow up with: Kam Salazar MD [Physician] - 03/26/17 9:45 am (Please arrive 15 min. early.) Eli Loja ARNP [Primary Care Provider] - 03/14/17 9:30 am (Please arrive 15 to 20 min. early.) Disposition: Home, Self-Care Prognosis: Good Rehab Potential: Good Overall status at discharge: patient is progressing back to baseline Medical - DS: Qual - VTE Deep Vein Thrombosis/Pulmonary Embolism Present on Admission: No
[2017-03-07] MEDS ORDERED: INSULIN GLARGINE, HUMAN 1 UNIT/0.01 ML SQ SCH (21:00)
[2017-03-07] MEDS ORDERED: ATORVASTATIN 20 MG TABLET PO SCH (21:00)
== END 2017-03-07 12:25 | disposition home or self-care (01) ==
LOC: ED 18:03 → ICU 18:03
PROVIDERS: ADMIT Internal Medicine; ATTEND Internal Medicine